=== PATIENT | female | born 1970 | race Caucasian/White ===

== ENCOUNTER 2018-05-18 19:14 | Emergency (ER) | payer BC ==
[2018-05-18] MEDS ORDERED: NORMAL SALINE 1000 ML 1,000 ML IV ONE (20:05)
[2018-05-18] MEDS ORDERED: METOCLOPRAMIDE HCL INJ/PF 10 MG/2 ML SDV IV ONE (20:05)
--- NOTE | 2018-05-18 20:09 | ER Document Report ---
ED Medical Screen (RME) - General Chief Complaint: Fever Time Seen by Provider: 05/18/18 20:04 - HPI Notes: 05/18/18 20:09 Pt wasn't placed in system at time of eval. Verbal report given to Dr. Mane who picked up chart.
[2018-05-18 21:03] LABS: ABSOLUTE BASOPHILS # (AUTO) 0.1 10^3/uL (0.0-0.2); ABSOLUTE LYMPHOCYTES (AUTO) 3.5 10^3/uL (0.5-4.7); ABSOLUTE MONOCYTES (AUTO) 1.3 10^3/uL (0.1-1.4); ABSOLUTE NEUT (AUTO) 10.9 10^3/uL (1.7-8.2); BASOPHILS % (AUTO) 0.5 % (0-2); EOSINOPHILS % (AUTO) 0.2 % (0-6); HEMATOCRIT 41.2 % (36.0-47.0); HEMOGLOBIN 14.2 g/dL (12.0-15.5); LYMPHOCYTES % (AUTO) 21.9 % (13-45); MEAN CORPUSCULAR HEMOGLOBIN 30.1 pg (27.0-33.4); MEAN CORPUSCULAR HGB CONC 34.6 g/dL (32.0-36.0); MEAN CORPUSCULAR VOLUME 87 fl (80-97); MONOCYTES % (AUTO) 8.3 % (3-13); PLATELET COUNT 253 10^3/uL (150-450); RED BLOOD COUNT 4.73 10^6/uL (3.72-5.28); RED CELL DISTRIBUTION WIDTH 13.3 % (11.5-14.0); SEGMENTED NEUTROPHILS % (AUTO) 69.1 % (42-78); TOTAL CELLS COUNTED % (AUTO) 100 %; WHITE BLOOD COUNT 15.8 10^3/uL (4.0-10.5)
[2018-05-18 21:12] LABS: ALANINE AMINOTRANSFERASE 18 U/L (9-52); ALBUMIN 4.4 g/dL (3.5-5.0); ALKALINE PHOSPHATASE 103 U/L (38-126); ANION GAP 12 (5-19); ASPARTATE AMINO TRANSFERASE 11 U/L (14-36); BILIRUBIN,DIRECT 0.3 mg/dL (0.0-0.4); BILIRUBIN,TOTAL 0.6 mg/dL (0.2-1.3); BLOOD UREA NITROGEN 6 mg/dL (7-20); CALCIUM 10.2 mg/dL (8.4-10.2); CARBON DIOXIDE 27 mmol/L (22-30); CHLORIDE 98 mmol/L (98-107); GLUCOSE 99 mg/dL (75-110); POTASSIUM 3.7 mmol/L (3.6-5.0); SODIUM 136.6 mmol/L (137-145); TOTAL PROTEIN 7.5 g/dL (6.3-8.2)
[2018-05-18 21:44] LABS: INTERNATIONAL RATION (INR) 0.95; PROTHROMBIN TIME 13.1 SEC (11.4-15.4)
[2018-05-18 21:45] LABS: PARTIAL THROMBOPLASTIN TIME 31.7 SEC (23.5-35.8)
--- NOTE | 2018-05-18 21:51 | ER Document Report ---
ED General - General Chief Complaint: Fever Time Seen by Provider: 05/18/18 20:04 Notes: Patient is a 47-year-old female with a past medical history of chronic back pain who presents with 2 days of headache, neck pain, sore throat, fever and cough. Was seen in urgent care, referred to the emergency department today due to concerns of possible bacterial meningitis. The patient describes her headache as being gradual in onset, moderate to severe in intensity although reports that has been improving over the past 24 hours. Nothing has been noted to improve or worsen her symptoms that she does. She denies any history of similar symptoms in the note some associated nausea but no vomiting. Denies any focal weakness, numbness or confusion. No known sick contacts. Denies any abdominal pain, vomiting or diarrhea. - Related Data Allergies/Adverse Reactions: bupropion [From Wellbutrin] Allergy (Verified 05/18/18 20:42) tramadol Allergy (Verified 05/18/18 20:42) NSAIDS (Non-Steroidal Anti-Inflamma Adverse Reaction (Verified 05/18/18 20:42) Diarrhea Sulfa (Sulfonamide Antibiotics) Adverse Reaction (Verified 05/18/18 20:42) Past Medical History - General Information source: Patient - Social History Smoking Status: Never Smoker Frequency of alcohol use: None Drug Abuse: None Lives with: Spouse/Significant other Family History: Reviewed & Not Pertinent Review of Systems - Review of Systems Notes: Constitutional: Positive for fever. HENT: Positive for sore throat. Eyes: Negative for visual changes. Cardiovascular: Negative for chest pain. Respiratory: Negative for shortness of breath. Gastrointestinal: Negative for abdominal pain, vomiting or diarrhea. Genitourinary: Negative for dysuria. Musculoskeletal: Negative for back pain. Skin: Negative for rash. Neurological: Positive for headache 10 point ROS negative except as marked above and in HPI. Physical Exam - Vital signs Vitals: Temp Pulse Resp BP Pulse Ox 99.1 F 84 16 109/50 L 100 05/18/18 23:41 05/18/18 23:41 05/18/18 23:41 05/18/18 23:41 05/18/18 23:41 Interpretation: Normal Notes: PHYSICAL EXAMINATION: GENERAL: Well-appearing, well-nourished and in no acute distress. HEAD: Atraumatic, normocephalic. EYES: Pupils equal round and reactive to light, extraocular movements intact, sclera anicteric, conjunctiva are normal. ENT: nares patent, oropharynx clear without exudates. Moist mucous membranes. NECK: Normal range of motion, no meningismus, supple without lymphadenopathy LUNGS: Breath sounds clear to auscultation bilaterally and equal. No wheezes rales or rhonchi. HEART: Regular rate and rhythm without murmurs ABDOMEN: Soft, nontender, normoactive bowel sounds. No guarding, no rebound. No masses appreciated. EXTREMITIES: Normal range of motion, no pitting or edema. No cyanosis. NEUROLOGICAL: Face symmetric. Tongue protrudes midline. Extraocular motions intact. Pupils are 2 mm and equally reactive. Normal speech, normal gait. 5 out of 5 strength in both the distal and proximal upper and lower extremities bilaterally. Sensation is grossly intact throughout. Finger to nose testing normal. Pronator drift normal. PSYCH: Normal mood, normal affect. SKIN: Warm, Dry, normal turgor, no rashes or lesions noted. Course - Re-evaluation Re-evalutation: 05/18/18 21:48 Patient presents with 2 days of fever, cough, headache, neck pain and sore throat. Referred to the emergency room by urgent care due to concerns of meningitis. On exam patient is alert, oriented, talking without any impairment of her mental status. Vitals are within acceptable limits at the time of my assessment without tachycardia or hypotension. Patient does have passive and active neck flexion extension. She has no focal neurologic deficits on exam. White blood cell count mildly elevated at 15, lactate normal. No rashes. I did review with the patient that the probability of a bacterial meningitis is less than 5% although is not at all 0%. We did review that this is a rare diagnosis and it would be unusual for the patient to have had gradual improvement of her headache rather than worsening and likewise be so well in appearance with normal blood lactate 48 hours after onset of symptoms if she had a true bacterial meningitis. I did review that a lumbar puncture would be the only manner in which to definitively exclude this diagnosis. We also reviewed that this would be a way to definitively evaluate for viral meningitis. We did review the risks of the procedure including pain at the procedure, post lumbar puncture headache probability. The patient initially consented to procedure and I did begin to make preparations to complete the procedure. The patient then decided that she did not want this procedure stating that she was concerned about the pain of the procedure itself as well as the risk of a possible post lumbar puncture headache. We again reviewed that I could not definitively exclude a bacterial meningitis or viral encephalitis without this test. I did review with the patient that if she truly had 1 of these diagnoses she could go home and get much sicker, deteriorate and even . We did review that we began treatment now she would have 1 of these diagnoses are probability of surviving or having no permanent neurologic impairment would be much better. We again reviewed the risks of the procedure itself. After this informed conversation the patient declines the procedure. Her [id number] is at the bedside who witnessed the entirety of this conversation. Patient has had significant improvement of her headache here after IV fluids, metoclopramide and antipyretics. I do suspect likely viral meningitis versus a viral etiology of her symptoms as a whole. Chest x-ray without infiltrate, urinalysis clear, flu test as an outpatient already negative. At this time will discharge with return precautions and follow-up recommendations. Verbal discharge instructions given a the bedside and opportunity for questions given. Medication warnings reviewed. Patient is in agreement with this plan and has verbalized understanding of return precautions and the need for primary care follow-up in the next 24-72 hours. 05/19/18 04:55 - Vital Signs Vital signs: Temp Pulse Resp BP Pulse Ox 99.1 F 84 16 109/50 L 100 05/18/18 23:41 05/18/18 23:41 05/18/18 23:41 05/18/18 23:41 05/18/18 23:41 - Laboratory Result Diagrams: 05/18/18 20:40 05/18/18 20:40 Laboratory results interpreted by me: 05/18/18 05/18/18 05/18/18 20:40 20:40 20:40 WBC 15.8 H Absolute Neutrophils 10.9 H Sodium 136.6 L BUN 6 L AST 11 L Urine Protein 30 H Urine Ascorbic Acid 40 H - Diagnostic Test Radiology reviewed: Image reviewed, Reports reviewed Radiology results interpreted by me: 05/18/18 21:51 Chest x-ray: No acute infiltrate or pneumothorax Discharge - Discharge Clinical Impression: Neck discomfort, Cough Headache Qualifiers: Headache type: unspecified Headache chronicity pattern: acute headache I ntractability: not intractable Qualified Code(s): R51 - Headache Fever Qualifiers: Fever type: unspecified Qualified Code(s): R50.9 - Fever, unspecified Condition: Stable Disposition: HOME, SELF-CARE Additional Instructions: Your seen today for fever, neck pain, cough and headache. You have declined a lumbar puncture today. The remainder of your blood work is otherwise relatively reassuring with the exception of a mildly elevated white blood cell count. I strongly encourage you to return to the emergency room immediately if you have worsening headache, confusion, persistent vomiting, worsening neck pain, or any other symptoms that are worrisome to you.
[2018-05-18 21:58] LABS: APPEARANCE,URINE SLIGHTLY-CLOUDY; BILIRUBIN,URINE NEGATIVE (NEGATIVE); COLOR,URINE YELLOW; GLUCOSE, URINE NEGATIVE (NEGATIVE); KETONES,URINE NEGATIVE (NEGATIVE); LEUKOCYTE ESTERASE,URINE NEGATIVE (NEGATIVE); NITRITE,URINE NEGATIVE (NEGATIVE); PROTEIN,URINE 30 mg/dL (NEGATIVE); URINE SPECIFIC GRAVITY 1.012; UROBILINOGEN,URINE NEGATIVE mg/dL (<2.0)
--- NOTE | 2018-05-18 22:33 | RADIOLOGY REPORT (SQ) ---
EXAM DESCRIPTION: XR CHEST 1 VIEW COMPLETED DATE/TME: 05/18/2018 00:00 CLINICAL HISTORY: 47 years, Female, chest pain, cough EXAM DESCRIPTION: CLINICAL HISTORY: chest pain, cough COMPARISON: None. FINDINGS: Single view of the chest is submitted. Cervical spine hardware is partially imaged. There is moderate rightward scoliosis of the thoracic spine. Cardiac silhouette is normal. No focal parenchymal or pleural disease. No acute bony abnormality. There is no significant pulmonary vascular engorgement. IMPRESSION: No evidence of acute cardiopulmonary disease.
[2018-05-18 23:44] VITALS: BP 109/50
== END 2018-05-18 23:50 | disposition home or self-care (01) ==
LOC: ER 19:14
DX: R50.9 Fever, unspecified (principal); R51 Headache; M54.2 Cervicalgia; J02.9 Acute pharyngitis, unspecified; R05 Cough; D72.829 Elevated white blood cell count, unspecified; Z88.8 Allergy status to other drugs, medicaments and biological substances; Z88.5 Allergy status to narcotic agent
CPT/HCPCS: 99283; 96361; 96374; 36415; 83605; 85025; 85610; 85730; 80053; 81001; 71045; J2765; J7030